=== PATIENT | female | born 1935 | race Two or more races ===

== ENCOUNTER 2025-04-09 06:24 | Day surgery (SDC) | payer OTHER ==
[~2025-04-09] VITALS: Ht 154.9 cm; Wt 61.2 kg
[~2025-04-09 06:24] MED LIST: AML5T PO; CHOL25CH3 PO; CYAN-17 PO; FURO20TA3 PO; GABA-1308 PO; LEVO75TA6 PO; OMEP-434 PO; POTA-36 PO
[2025-04-09] MEDS ORDERED: PROPOFOL 10 MG/ML 20 ML IV ONE ×2 (06:54→07:57)
[2025-04-09] MEDS ORDERED: GLYCOPYRROLATE 0.2 MG/ML 1ML VIAL ONE (06:54)
[2025-04-09] MEDS ORDERED: KETOROLAC TROMETH 30 MG/ML 1ML VIAL ONE (06:55)
[2025-04-09] MEDS ORDERED: LIDOCAINE 1% INJ PF 5ML AMP ONE (06:55)
[2025-04-09] MEDS ORDERED: ONDANSETRON HCL 4 MG/2 ML VIAL ONE (06:55)
[2025-04-09] MEDS ORDERED: KETAMINE 50mg/ML 1ml syringe ONE (06:55)
[2025-04-09] MEDS: ceFAZolin 2 GM/D5W50ml 50 ML IV ONE (07:26)
[2025-04-09 08:25] VITALS: PULSE 76; RESP 14; TEMP 98.1; O2SAT 99
[2025-04-09] MEDS ORDERED: NALOXONE HCL 0.4 MG/ML VIAL IV PRN (08:30)
[2025-04-09] MEDS ORDERED: fentaNYL CITRATE 100 MCG/2 ML VL IV PRN (08:30)
[2025-04-09] MEDS ORDERED: FLUMAZENIL 0.1 MG/ML INJ 10ML MDV IV PRN (08:30)
[2025-04-09] MEDS ORDERED: hydrALAZINE HCL 20 MG/ML VL IV PRN (08:30)
--- NOTE | 2025-04-09 08:41 | DVHOP2 ---
Operative Report - 2 Report Details Date: 04/09/25 Preop Diagnosis: Left knee loose body, degenerative arthritis Postop Diagnosis: Left knee loose body, degenerative lateral meniscus tear, synovitis, degenerative arthritis Surgeon: Megan Castro MD Bath Tester: Danni PETER Anesthesiologist: Dusty Chaidez CRNA Anesthesia: Mac, Regional Consent: The patient was informed of the risks and benefits of the procedure. These include but are not limited to complications of anesthesia, postoperative infection, incomplete relief of symptoms, recurrence of symptoms, damage to blood vessels, nerves and tendons, deep venous thrombosis, pulmonary embolism and possible need for repeat surgery in the future. Complications: None Estimated Blood Loss: Less than 5 cc Fluids: See anesthesia record Findings: Left knee normal range of motion no instability. There was grade 4 changes at the patellofemoral compartment with an obvious large loose body as well as an attached loose body at the superior patella. Her medial meniscus was intact with some grade 2-3 change chondromalacia. Her ACL was diminutive with osteophytic overgrowth in the notch. Lateral compartment was grade 3 with some areas of grade 4 chondromalacia and degenerative lateral meniscus tear. Indications for Surgery: Left knee pain, mechanical symptoms and functional impairment despite nonoperative management Name of Procedure Performed Left knee arthroscopy, loose body removal, synovectomy, partial lateral meniscectomy Procedure Details Procedure Details: Patient was brought to the operating room and placed on table in supine position. Patient was given IV sedation. Local anesthetic was infiltrated into the knee for regional/local block. Preop patient received IV Ancef. Thigh post was position and tourniquet applied. Examination anesthesia performed. Left lower extremity was prepped and draped in sterile fashion. Surgical time-out was performed verifying patient, laterality, and procedure. I made inferolateral portal in the usual fashion entered the joint with blunt cannula and trocar. I began my inspection 1st of the suprapatellar recess with a large loose body was identified as well as the secondary attached loose body at the superior patella. There was a fair amount of synovitis which had to be shaved to improve visualization. I then checked the medial gutter in the medial compartment. Inferior medial portal was placed utilizing spinal needle for guidance again I had to perform quite a bit of shaving here of excessive synovium. I inspected and probed the meniscus which was intact. I then brought my attention to the notch where again I had to shave synovium and noted the fin dings as stated above. I used a pituitary to perform a notchplasty. I then brought my attention to the lateral compartment again using the shaver to remove synovium. I probed the meniscus and debrided the degenerative tears to a stable margin using biters and Diamante which was verified with the probing. I then brought my attention to the lateral gutter where there were no loose bodies and back to the suprapatellar compartment. I used the pituitary as well as a grasper to remove the loose body I did have to enlarge the medial portal in order to get the loose body out of the joint. I used scalpel to increase the size of that portal. I then identified the loose osteophyte at the superior patella and I used a shaver and grasper and biters to eventually get this loose and get it out of the joint. I irrigated and suctioned several times to remove particulate debris closed the portal sites with Steri-Strips and nylon and dressed the wound sterilely. Patient tolerated the procedure well was brought to recovery room in stable condition. Condition Stable Disposition Still a Patient MEGAN CASTRO MD Apr 09, 2025 08:41
[2025-04-09] MEDS: ACETAMINOPHEN IV 100 ML IV ONE (08:45)
[2025-04-09] MEDS: LIDOCAINE W/ EPINEPHRINE 2% INJ 20ML VIAL ONE (08:45)
[2025-04-09] MEDS: ROPIVACAINE 0.5% (5MG/ML) 20ML AMPULE IJ ONE (08:45)
[2025-04-09] MEDS: HYDROmorphone HCL 2 MG/ML VL/or syr ONE (08:46)
[2025-04-09] MEDS: HYDROmorphone HCL 2 MG/ML VL/or syr IV PRN (08:47)
[2025-04-09] MEDS: ONDANSETRON HCL 4 MG/2 ML VIAL IV PRN (09:15)
[2025-04-09 09:55] VITALS: BP 120/45; PULSE 62; RESP 18; O2SAT 98
[2025-04-09] MEDS ORDERED: ACETAMINOPHEN IV 1000 MG/100ML (10MG/ML) IV ONE (12:00)
== END 2025-04-09 10:00 | disposition home or self-care (01) ==
LOC: SUR 06:24
PROVIDERS: ATTEND Orthopaedic Surgery
DX: S83.282A Other tear of lateral meniscus, current injury, left knee, initial encounter (principal); M65.962 Unspecified synovitis and tenosynovitis, left lower leg; M94.262 Chondromalacia, left knee; M23.42 Loose body in knee, left knee; X58.XXXA Exposure to other specified factors, initial encounter; Y93.89 Activity, other specified; Y92.89 Other specified places as the place of occurrence of the external cause; Y99.8 Other external cause status; M17.12 Unilateral primary osteoarthritis, left knee; I10 Essential (primary) hypertension; E78.5 Hyperlipidemia, unspecified; J44.9 Chronic obstructive pulmonary disease, unspecified; N18.9 Chronic kidney disease, unspecified; K21.9 Gastro-esophageal reflux disease without esophagitis; I35.0 Nonrheumatic aortic (valve) stenosis; Z79.899 Other long term (current) drug therapy; Z98.890 Other specified postprocedural states; M25.562 Pain in left knee
CPT/HCPCS: 29881; 64450; J0169; J0690; J1100; J1171; J1885; J2405; J2704; J2795; J0131